=== PATIENT | female | born 2000 | race Caucasian/White ===

== ENCOUNTER 2021-06-16 08:38 | Emergency (ER) | payer OTHER, SELFPAY ==
[2021-06-16] VITALS (14 sets, daily range): BP systolic 110–127; BP diastolic 59–77; PULSE 93; RESP 16; O2SAT 99–100
--- NOTE | ~2021-06-16 | US_ITS ---
EXAMINATION: US pelvic complete DATE: 06/16/2021 12:53 INDICATION: Right lower quadrant abdominal pain. TECHNIQUE: Multiple transabdominal sonographic images of the pelvis were obtained. COMPARISON: CT abdomen and pelvis 06/16/2021 FINDINGS: The uterus measures 7.3 x 3.3 x 6.2 cm. There is no free fluid in the pelvis. The endometrial complex measures 4 mm in thickness. The right ovary measures 3.0 x 1.6 x 1.4 cm. The left ovary measures 3.3 x 1.5 x 1.3 cm. There is normal vascular flow in the ovaries. IMPRESSION: 1. Normal pelvis. Reviewed, dictated and finalized at location A. IMPRESSION: 1. Normal pelvis.
--- NOTE | ~2021-06-16 | CT_ITS ---
EXAMINATION: CT abdomen pelvis w con DATE: 06/16/2021 11:31 INDICATION: Abdominal pain, nausea, vomiting and diarrhea. TECHNIQUE: Computed tomography (CT) of the abdomen and pelvis was performed with 100 mL Omnipaque-350 intravenous contrast. Automated exposure control and iterative reconstruction technique were employe d. The dose-length product was 775.45 mGy-cm. COMPARISON: None FINDINGS: Lung bases are clear. Visualized inferior heart is normal. Mild focal hepatic steatosis at the ligame ntum teres. Gallbladder, spleen, pancreas, bilateral adrenal glands and kidneys are normal. There are few scattered clonic diverticula without adjacent inflammatory change to suggest diverticular coliti s. No bowel obstruction. Bladder, anteverted uterus and left adnexa are unremarkable. There is subtle haziness to the fat in the right hemipelvis along the otherwise normal-appearing right ovary and melquiades r but not appearing centered around the appendicolith-containing tip of the normal-appearing appendix . No free intraperitoneal gas or fluid. No pathologically enlarged abdominal or pelvic lymphadenopath y. Transitional lumbosacral segment. Right supra-acetabular bone island. IMPRESSION: 1. Nonspecific subtle haziness to the fat in the right lower quadrant along side the otherwise unrema rkable right ovary and near but not appearing centered around the tip of the appendicolith-containing appendix. Differential includes tip appendicitis although suspicion is low, ovarian torsion although there does appear to be contrast enhancement of the right ovary and gonadal vessels or other nonspec ific infectious/infiltrate etiology including pelvic inflammatory disease or mesenteritis. Correlate for right lower quadrant/right adnexal pain/tenderness. Reviewed, dictated and finalized at location B. IMPRESSION: 1. Nonspecific subtle haziness to the fat in the right lower quadrant along britta e the otherwise unremarkable right ovary and near but not appearing centered ar ound the tip of the appendicolith-containing appendix. Differential includes ti p appendicitis although suspicion is low, ovarian torsion although there does a ppear to be contrast enhancement of the right ovary and gonadal vessels or othe r nonspecific infectious/infiltrate etiology including pelvic inflammatory dise ase or mesenteritis. Correlate for right lower quadrant/right adnexal pain/tend erness.
--- NOTE | 2021-06-16 09:08 | PC.NURSE ---
Patient ambulatory to with great gait. Urine sample obtained.
--- NOTE | 2021-06-16 09:23 | ED.ABDPAIN ---
HPI - Abdominal Pain General Chief Complaint: Abdominal Pain <MARTIN Chi Last Filed: 06/16/21 18:53> Stated Complaint: nausea and vomiting <MARTIN Chi Last Filed: 06/16/21 18:53> Time Seen by Provider: 06/16/21 08:53 <MARTIN Chi Last Filed: 06/16/21 18:53> Source: patient <MARTIN Chi Last Filed: 06/16/21 18:53> Mode of arrival: ambulatory <MARTIN Chi Last Filed: 06/16/21 18:53> Limitations: no limitations <MARTIN Chi Last Filed: 06/16/21 18:53> History of Present Illness HPI narrative: Patient is a 21-year-old female who presents the ED with reports of nausea, vomiting, diarrhea. Patient reports having daily nausea since last September. She has seen several doctors for this but is not on any prescription nausea medicine at home. She reports having vomiting and diarrhea over the past couple days. She states she is unable to keep any food or fluid down. She notes she has only had one episode of vomiting a day, but this morning had a very forceful episode. She reported having small streaks of blood in her vomit after retching several times today. No episodes of vomiting pure blood. Denies any blood in her stool. Denies any family members with similar symptoms. She also reports having upper abdominal pain but denies any fever, chills, urinary symptoms, back pain, chest pain, shortness of breath. Patient is currently on her menstrual cycle. <MARTIN Chi Last Filed: 06/16/21 18:53> Related Data Allergies/Adverse Reactions: Allergies Allergy/AdvReac Type Severity Reaction Status Date / Time No Known Allergies Allergy Unverified 01/16/18 19:43 <MARTIN Chi Last Filed: 06/16/21 18:53> Review of Systems Review of Systems: CONSTITUTIONAL: Denies fever, chills, or sweats. CARDIOVASCULAR: Denies chest pain. RESPIRATORY: Denies dyspnea. GASTROINTESTINAL: Reports upper abdominal pain, nausea, vomiting w/ streaks of blood, and diarrhea. Denies rectal bleeding. GENITOURINARY: Denies dysuria or hematuria. MUSCULOSKELETAL: Denies back pain. NEUROLOGIC: Denies headache, numbness, or weakness. <Sarah Ledbetter PA-C - Last Filed: 06/16/21 18:53> All systems reviewed & are unremarkable except as noted in HPI and below <Sarah Ledbetter PA-C - Last Filed: 06/16/21 18:53> PMFSH Past Medical History Medical History: Medical History IBS (irritable bowel syndrome) PCOS (polycystic ovarian syndrome) <Sarah Ledbetter PA-C - Last Filed: 06/16/21 18:53> Surgical History Surgical History: Surgical History No pertinent past surgical history <Sarah Ledbetter PA-C - Last Filed: 06/16/21 18:53> Family History Family History: Family History Other No pertinent family history <Sarah Ledbetter PA-C - Last Filed: 06/16/21 18:53> Social History Social History: Social History Smoking status: Never smoker Alcohol intake: current Alcohol use details: Occasional/social alcohol use Substance use: current Substance use type: marijuana Other substance usage details: Smokes marijuana daily Living arrangements: with family Additional living arrangements comments: Lives with her parents Occupation/Education: unemployed Additional occupation/education comments: Not currently employed or in school Gender identity (if verbalized by the patient): Female <Sarah Ledbetter PA-C - Last Filed: 06/16/21 18:53> Exam Narrative: GENERAL: Well appearing, well-nourished, non-toxic, in no acute distress. HEAD: Normocephalic, atraumatic. NECK: Supple. No adenopathy, no masses. RESPIRATORY: Airway patent, respirations nonlabored. Clear to auscultation bilaterally,
[2021-06-16] MEDS: ONDANSETRON INJ 4 MG/2 ML VIAL IV PUSH ×2 (09:42→16:17)
[2021-06-16] MEDS: SODIUM CHLORIDE 0.9% IV 1,000 ML 999 ML IV CONT (09:42)
[2021-06-16 09:57] LABS: Basophils Percent Auto 0.1 % (0.2-1.2); Eosinophils Percent Auto 0.2 % (0-4.4); Hematocrit 40.2 % (37.0-47.0); Immature Granulocyte Absolute 0.02 K/mm3 (0.00-0.031); Immature Granulocyte Percent A 0.2 % (0-0.5); Lymphocytes Absolute Auto 1.95 K/mm3 (0.9-3.2); Lymphocytes Percent Auto 22.9 % (18.3-44.2); Mean Corpuscular HGB Conc 32.3 g/dl (32-36); Mean Corpuscular Hemoglobin 26.9 pg (26-34); Mean Corpuscular Volume 83.2 fl (80-100); Mean Platelet Volume 10.1 fl (7.4-10.4); Monocytes Absolute Auto 0.5 K/mm3 (0.1-0.6); Monocytes Percent Auto 5.4 % (2.6-8.5); Neutrophils Absolute Auto 6.1 K/mm3 (1.3-6.7); Neutrophils Percent Auto 71.2 % (45.5-73.1); Platelet Count Result 366 k/mm3 (150-375); Red Blood Count 4.83 M/mm3 (4.2-5.4); Red Cell Distribution Width 13.2 % (11.5-14.5); White Blood Count 8.5 K/mm3 (4.5-10.0)
[2021-06-16 10:01] LABS: Alanine Aminotransferase 13 U/L (4-35); Albumin Level 4.6 g/dL (3.5-5.1); Alkaline Phosphatase 86 U/L (38-126); Anion Gap 10 mmol/L (8-16); Aspartate Amino Transferase 25 U/L (14-36); Bilirubin,Total 0.3 mg/dL (0.2-1.3); Blood Urea Nitrogen 13 mg/dL (7-17); Calcium 8.9 mg/dL (8.4-10.2); Carbon Dioxide 25 mmol/L (22-30); Chloride 105 mmol/L (98-107); Estimated CRCL calculation 75 ml/min; Estimated Glomerular Filt Rate > 60; Glucose 124 mg/dL (65-110); Lipase 84 U/L (23-300); Potassium 3.3 mmol/L (3.4-5.0); Sodium 140 mmol/L (137-145)
--- NOTE | 2021-06-16 10:46 | PC.NURSE ---
IVF complete. Patient now reports that she can provide urine sample. Ambulatory to BR>
[2021-06-16 11:15] LABS: Add Urine Microscopic? YES; Appearance Urine Cloudy (Clear); Bilirubin Urine Negative (Negative); Blood Urine 3+ (Negative); Color Urine Yellow (Yellow); Glucose Urine UA Negative (Negative); Ketones Urine 1+ mg/dL (Negative); Leukocyte Esterase Ur Negative LEU/UL (Negative); Mucus Urine Rare /lpf; Nitrate Urine Negative (Negative); Protein Urine Negative (Negative); RBC Urine >75 /hpf (0-2); Specific Grav Ur 1.018 (1.001-1.035); Squamous Epithelial Cell Urine Few /hpf (Few); Urobilinogen Urine Negative mg/dL (<2.0)
--- NOTE | 2021-06-16 11:30 | PC.NURSE ---
Patient off unit to radiology for CT>
--- NOTE | 2021-06-16 15:48 | PM.CNGS ---
Assessment and Plan Assessment and plan (1) Epigastric abdominal pain: Code(s): R10.13 - Epigastric pain Status: Acute Assessment and Plan: The patient presents acutely with vomiting and diarrhea. She also deals with nausea and epigastric abdominal pain chronically. CT suggests nonspecific subtle haziness to the fat in the right lower quadrant. There is evidence of an appendicolith at the tip of the appendix, but an otherwise normal appearing appendix. Pelvic US was ordered to rule out ovarian torsion, which appeared normal. Imaging was reviewed and discussed with the patient in detail. She is diffusely tender on exam and is not currently having any abdominal pain. Clinically, her presentation and exam do not correlate with acute appendicitis. We feel this is less likely to be the cause of her symptoms, and the findings on the CT are more likely caused by another infectious source. Okay from our standpoint to send the patient home and treat her conservatively as a viral gastroenteritis. I discussed with the patient that although acute appendicitis is unlikely, this is still a slight possibility. Therefore, if she does not improve in the next 24 hours, we would recommend she return to the ER for re-evaluation. If her symptoms continue to improve, then we would recommended that she follow-up with GI as an outpatient for further work-up of the chronic nausea and epigastric pain. Discussed the treatment plan with the patient and she agrees. Thank you for allowing us to see the patient in consultation. (2) Abnormal CT of the abdomen: Code(s): R93.5 - Abnormal findings on diagnostic imaging of other abdominal regions, including retroperitoneum Status: Acute Assessment and Plan: CT showing nonspecific subtle haziness to the fat in the right lower quadrant along side the otherwise unremarkable right ovary and near but not appearing centered around the tip of the appendicolith-containing appendix. See plan above. (3) Nausea & vomiting: Code(s): R11.2 - Nausea with vomiting, unspecified Status: Acute Assessment and Plan: See plan above. Would recommend following up with GI as an outpatient for ongoing chronic nausea and epigastric abdominal pain. (4) PCOS (polycystic ovarian syndrome): Code(s): E28.2 - Polycystic ovarian syndrome Status: Acute Additional Plan I have discussed the patient's case and plan of care with Dr. Damian. History of Present Illness Consult details Consult date: 06/16/21 Reason for consult: abdominal pain Requesting physician: Sarah Ledbetter PA-C Narrative: This is a 21-year-old female with a history of IBS and PCOS, who presented to the ER with complaints of nausea, vomiting, and diarrhea. She reports that she has had chronic issues with epigastric abdominal pain and nausea for over 10 years. She was reportedly diagnosed with IBS at the age of 11 and has been evaluated by a Tire Changer at [facility]. She denies ever having an upper endoscopy in the past. She reports that for years she deals with epigastric abdominal pain and nausea on a daily basis, but does not typically vomit. She smokes marijuana daily to try and improve her appetite. She reports that a few days ago she began having diarrhea, with over 10 watery stools per day. She reports that yesterday she began vomiting. No fever or chills. No close contacts with similar symptoms. This morning, she had an episode of vomiting after taking Protonix, Pepcid, Midol, and chugging a large amount of water with her pills. She reported having blood-tinged emesis, which prompted her to go to the ER. She also reports having some bilateral lower abdominal cramping that is intermittent and corresponds with her menstrual cycle. She reports that the cramps she has experienced over the past few days with her period is what she typically experiences during menses with her PCOS. Work-up in the ER shows a normal WBC count. CT scan of
--- NOTE | 2021-06-16 16:17 | PC.NURSE ---
EDP back at bedside to update patient on plan of care.
== END 2021-06-16 16:42 | disposition home or self-care (01) ==
PROVIDERS: Physician Assistant; Emergency Provider Emergency Medicine; PCP Nurse Practitioner Family
DX: K52.9 Noninfective gastroenteritis and colitis, unspecified (principal); R93.5 Abnormal findings on diagnostic imaging of other abdominal regions, including retroperitoneum; E28.2 Polycystic ovarian syndrome; F12.90 Cannabis use, unspecified, uncomplicated
CPT/HCPCS: 36415; 74177; 76856; 80053; 81001; 81025; 83690; 85025; 96365; 96375; 96376; 99284; J0131; J2405; J7030; Q9967

== ENCOUNTER 2021-08-27 16:00 | Outpatient (CLI) | payer OTHER, SELFPAY ==
[2021-09-26 15:09] LABS: Gliadin AB, IgG <1.0 U/mL (<15.0); Reticulin IgA Negative (Negative); TTG IGA AB <1.0 U/mL (<15.0)
== END 2021-08-27 16:01 | disposition home or self-care (01) ==
LOC: ANHLAB 16:01
PROVIDERS: PCP Nurse Practitioner Family; Visit Provider Internal Medicine Gastroenterology
DX: R10.13 Epigastric pain (principal)
CPT/HCPCS: 36415; 83516; 86255

== ENCOUNTER 2024-11-10 23:49 | Emergency (ER) | payer OTHER, SELFPAY ==
--- NOTE | ~2024-11-10 | XR_ITS ---
EXAMINATION: XR chest 1V, 11/11/2024 0:25 CDT HISTORY: neuro symptoms COMPARISON: No comparisons available. Technique: Single view. Findings: The lungs are clear, no effusion. No pneumothorax. Heart is normal size. Mediastinal and hilar contours are within normal limits. Bony thorax no acute abnormality. Impression: No acute cardiopulmonary abnormality. Reviewed, dictated and finalized at location A. Impression: No acute cardiopulmonary abnormality.
--- NOTE | ~2024-11-10 | CT_ITS ---
EXAMINATION: CT brain wo con COMPARISON: None HISTORY: neuro symptoms TECHNIQUE: Axial images were obtained through the brain without IV contrast. CT scan performed using dose optimization techniques including the following automated exposure control; adjustment of mA and/or kV; use of iterative reconstruction technique. Automatic exposure control was used to reduce radiation dose. Permanent radiation dose record is archived to PACS. FINDINGS: No acute infarct or parenchymal hemorrhage. No abnormal mass or mass effect. No midline shift. No extra-axial fluid collections. No hydrocephalus. . Mastoid air cells unremarkable. Sinuses and orbits unremarkable. No acute fracture. No significant facial or scalp soft tissue swelling evident. No radiopaque foreign body is seen. Impression: 1.No acute intracranial abnormality. Reviewed, dictated and finalized at location A. Impression: 1.No acute intracranial abnormality.
[2024-11-10 23:55] VITALS: BP 115/72; PULSE 86; RESP 16; TEMP 37.1; O2SAT 100
--- OUTSIDE RECORDS SUMMARY | 2024-11-10 23:55 | XMS_ITS | Clinical Summary ---
Author Organization [facility] Address [address] [place] [address] Care Team Providers Care Documentation Lead Name Role Phone Tara Rueda MD Primary Care Provider [phone] Source Comments [facility],non-owned Affiliates and Associated Physician Practices is amultiple site organization consisting of ambulatory clinics and hospital sitesin [place], [place], [place] and [place]. This disclosure is being madepursuant to the Care Everywhere program and may not contain all information available regarding this patient. Last updated 17.[facility] Allergies No known active allergies Medications * Be aware that medications may not be up to date on this document. Alwaysverify current medications with the patient. 04/03 1-20 MG-MCG tablet 7 Active SM CLEARLAX powder 7 Active hyoscyamine (LEVSIN/SL) 0.125 MG SL tablet Dissolve 1 Tab under the tongue 2 times daily as needed for Spasms 60 Tab 1 7 Active omeprazole (PRILOSEC) 20 MG capsule Take 1 capsule by mouth daily before breakfast 30 capsule 2 7 Active Active Problems Problem Noted Date Diagnosed Date Blood in stool 12/18/2016 Generalized abdominal pain 12/15/2016 Obesity, Class I, BMI 30-34.9 12/15/2016 Gastroesophageal reflux disease 12/15/2016 Abdominal pain 12/14/2016 Overweight 12/14/2016 Resolved Problems Problem Noted Date Diagnosed Date Resolved Date Constipation 12/15/2016 01/12/2017 Family History Medical History Relation Name Comments Other Mother GERD. Had stoma ch ulcers as a child. Crohn's Disease Paternal Grandmother Celiac Disease Paternal Uncle Other Sister GERD Ulcerative Colitis Neg Hx Relation Name Status Comments Mother Paternal Grandmother Paternal Uncle Sister Social History Tobacco Use Types Packs/Day Years Used Date Smoking Tobacco: Never Smokeless Tobacco: Never Alcohol Use Standard Drinks/Week Comments No 0 (1 standard drink = 0.6 oz pur e alcohol) Comments Unknown Sex and Gender Information Value Date Recorded Sex Assigned at Not on file Legal Sex Female 5:40 AM MUSIC EXECUTIVE Gender Identity Not on file Sexual Orientation Not on file Last Filed Vital Signs Vital Sign Reading Time Taken Comments Blood Pressure 106/62 12/15/2016 3:00 PM CDT Pulse - - Temperature - - Respiratory Rate - - Oxygen Saturation - - Inhaled Oxygen Concentration - - Weight 84.1 kg (185 lb 6.5 oz) 12/15/2016 3:00 P M CDT Height 158.1 cm (5' 2.24) 12/15/2016 3:00 PM CD T Body Mass Index 33.65 12/15/2016 3:00 PM CDT Plan of Treatment Health Maintenance Due Date Last Done Comments HIV SCREENING 2016 HPV VACCINE (1 - 3-dose series) 2016 CHLAMYDIA/GONORRHEA SCREENING 2017 MENINGOCOCCAL (Group B) VACC INE SHARED DECISION-MAKING (1 of 2 - Standard) 2017 HEPATITIS C SCREENING 03/20/2019 DTAP/TDAP/TD VACCINES (1 - Tdap) 2020 HEPATITIS B VACCINE (1 of 3 - 19+ 3-dose series) 2020 COVID-19 VACCINE (1 - 2023-2 5 season) 2023 DEPRESSION SCREENING 03/15/2024 INFLUENZA VACCINE (#1) 2024 ZOSTER VACCINE (1 of 2) 2051 HIB VACCINE Aged Out No longer eligi ble based on patient's age to complete this topic MENINGOCOCCAL GROUPS A/C/Y/W VACCINE Aged Out No longer eligible b ased on patient's age to complete this topic PNEUMOCOCCAL VACCINE Aged Out No long er eligible based on patient's age to complete this topic Insurance [facility] Care Teams Documentation Lead Relationship Specialty Start Date End Date Tara Rueda MD [address] [place] [address] PCP - General 11/08/17
--- OUTSIDE RECORDS SUMMARY | 2024-11-10 23:55 | XMS_ITS | Clinical Summary ---
Author Organization [facility] Address [facility] [place] [address] Care Team Providers Care Visual Arts Teacher Name Role Phone Nasima Pippa Rutledge MATERIALS BUYER Primary Care Provider [phone] Allergies No known active allergies Medications levETIRAcetam ER 750 MG TABLET SR 24 HR 24 hr tablet Take 750 mg by mouth daily. Active escitalopram 5 MG tablet Take 5 mg by mouth daily. Active famotidine 10 MG tablet Take 10 mg by mouth 2 (two) times daily. Active omeprazole 40 MG capsule Take 1 capsule (40 mg total) by mouth daily. 30 capsule 2 Active ondansetron 4 MG disintegrating tablet Take 1 tablet (4 mg total) by mouth every 8 (eight) hours as needed for Nausea. 12 tablet 2 Active famotidine 20 MG tablet Take 1 tablet (20 mg total) by mouth 2 (two) times daily. 60 tablet 2 Active ondansetron (ZOFRAN-ODT) 4 MG disintegrating tablet Take 1 tablet (4 mg total) by mouth every 8 (eight) hours as needed for Nausea. 20 tablet 2 Active dicyclomine (BENTYL) 10 MG capsule Take 1 capsule (10 mg total) by mouth 4 (four) times daily before meals and nightly. 240 capsule 2 Active Social History Tobacco Use Types Packs/Day Years Used Date Smoking Tobacco: Never Smokeless Tobacco: Never Alcohol Use Standard Drinks/Week Comments Yes 0 (1 standard drink = 0.6 oz pur e alcohol) Comments Unknown Sex and Gender Information Value Date Recorded Sex Assigned at Not on file Legal Sex Female 6:34 AM CDT Gender Identity Not on file Sexual Orientation Not on file Last Filed Vital Signs Vital Sign Reading Time Taken Comments Blood Pressure 100/52 01/29/2022 11:00 PM CONSOLE ASSEMBLER Pulse 91 01/29/2022 7:41 PM CONSOLE ASSEMBLER Temperature 36.3 C (97.3 F) 01/29/2022 7:41 PM CONSOLE ASSEMBLER Respiratory Rate 18 01/29/2022 7:41 PM CONSOLE ASSEMBLER Oxygen Saturation 97% 01/29/2022 11:00 PM CONSOLE ASSEMBLER Inhaled Oxygen Concentration - - Weight 93 kg (205 lb) 01/29/2022 7:41 PM CONSOLE ASSEMBLER Height 160 cm (5' 3) 01/29/2022 7:41 PM CONSOLE ASSEMBLER Body Mass Index 36.31 01/29/2022 7:41 PM CONSOLE ASSEMBLER Plan of Treatment Health Maintenance Due Date Last Done Comments Cervical Cancer Screening Pap Smear (Age 21 to 29) Every 3 Years 2001 Cervical Cancer Screening 2001 Annual Physical 2004 Hepatitis C 2019 DTaP, Tdap and Td Vaccines (7 - Td or Tdap) 11/21/2022 11/21/2012, 11/29/2006, 07/20/2002, Additional history exists COVID-19 Vaccine ( season) 2023 Hepatitis B Vaccines Completed 04/18/2002, 2001, 2001 Pneumococcal Vaccine: Pediatrics (0 to 5 Years) and At-Risk Patients (6 to 49 Years) Aged Out 04/18/2002, 2001, 2001, Additional history exists No longer eligible based on patient's age to complete this topic HPV Vaccines Completed 12/02/2015, 06/0 05/2013, 02/01/2013, Additional history exists Meningococcal Vaccine Completed 12/14/2018, 013 Meningococcal B Vaccine Completed 04/12/2019, 12/14 RSV Immunizations Under 20 Months Aged Out No longer eligible based on patient's age to complete this topic Insurance [employer] Care Teams Visual Arts Teacher Relationship Specialty Start Date End Date Pippa Del Real NP [address] [place] [address] PCP - General NURSE PRACTITIONER 04/10/21
--- OUTSIDE RECORDS SUMMARY | 2024-11-10 23:55 | XMS_ITS | Clinical Summary ---
Author Organization [facility] Address [address] [place] [address] Phone Care Team Providers Care Tail Board Man Name Role Phone Tara Macdonald MD Primary Care Provider Social History Tobacco Use Types Packs/Day Years Used Date Smoking Tobacco: Never Assessed Comments Unknown Sex and Gender Information Value Date Recorded Sex Assigned at Not on file Legal Sex Female 11:43 AM CDT Gender Identity Not on file Sexual Orientation Not on file Plan of Treatment Health Maintenance Due Date Last Done Comments Hepatitis C Virus (HCV) Screening 2001 Meningococcal B Immunization (1 of 2 - Standard) 2017 SARS-COV-2 Immunization ( - season) 2023 Influenza Immunization (#1) 2024 Respiratory Syncytial Virus (RSV) Immunization (Adult) (1 - 1-dose 75+ series) 2076 Hepatitis B Immunization Completed 003, 2001, 2001 Pneumococcal Immunization Combined Aged Out 04/18/2002, 2001, 2001, Additional history exists No longer eligible based on patient's age to complete this topic Measles Mumps Rubella (MMR) Immunization Discontinued 11/29/2006, 04/18/2002 Polio (IPV) Immunization Discontinued 007, 2001, 2001, Additional history exists DTaP/Tdap/Td Immunization Discontinued 2012, 11/29/2006, 07/20/2002, Additional history exists Meningococcal Immunization (ACWY) Aged Out 11/21/2012 No longer eligible based on patient's age to complete this topic TdaP Immunization Completed 11/21/2012 Hepatitis A Immunization Discontinued 08/15/2013, 11/2012 Varicella Immunization Discontinued 08/15/2013, 2002 Human Papillomavirus (HPV) Immunization Completed 12/02/2015, 08/15/2013, 02/01/2013, Additional history exists Rotavirus Immunization Aged Out No lo nger eligible based on patient's age to complete this topic Insurance MEDICAID [employer] Care Teams Tail Board Man Relationship Specialty Start Date End Date Jedg Tara Squires MD [address] [place] [address] [address] [place] [address] PCP - General Family Medicine 06/13/18
--- NOTE | 2024-11-11 00:04 | PC.NURSE ---
ct aware of pt.
--- NOTE | 2024-11-11 00:08 | ECG_ITS ---
Test Date: 2024-11-11 00:08:01 Measurements Intervals [place] Rate: 84 P: 52 NM: 151 QRS: 69 QRSD: 98 T: 44 QT: 382 QTc: 453 Interpretive Statements SINUS RHYTHM MINIMAL Q WAVES- INFERIOR LEADS BASELINE ARTIFACT- I, II, III, AVR, AVL, V4-V6 BORDERLINE ECG No previous ECG available for comparison Electronically Signed On 11-11-2024 08:11:36 CDT by Roque Pina D.O.
[2024-11-11 00:22] LABS: Hematocrit 36.3 % (37.0-47.0); Hemoglobin 11.2 g/dL (12.0-15.0); Immature Granulocyte Percent A 0.2 % (0-0.5); Lymphocytes Absolute Auto 2.77 K/mm3 (0.9-3.2); Mean Corpuscular HGB Conc 30.9 g/dl (32-36); Mean Corpuscular Hemoglobin 24.3 pg (26-34); Mean Corpuscular Volume 78.9 fl (80-100); Nucleated Red Blood Cells Absolute Auto 0.000 K/mm3 (0.0-0.012); Nucleated Red Blood Cells Perc 0.0 % (0.0-0.2); Platelet Count Result 357 k/mm3 (150-375); Red Blood Count 4.60 M/mm3 (4.2-5.4); White Blood Count 9.6 K/mm3 (4.5-10.0)
[2024-11-11 00:31] LABS: Alanine Aminotransferase 17 U/L (6-35); Albumin Level 4.2 g/dL (3.5-5.1); Alkaline Phosphatase 81 U/L (38-126); Anion Gap 10 mmol/L (4-12); Aspartate Amino Transferase 24 U/L (14-36); Bilirubin,Total 0.3 mg/dL (0.2-1.3); Blood Urea Nitrogen 12 mg/dL (7-17); Calcium 8.9 mg/dL (8.4-10.2); Carbon Dioxide 25 mmol/L (22-30); Chloride 103 mmol/L (98-107); Estimated CRCL calculation 84 ml/min; Estimated Glomerular Filt Rate > 60; Glucose 115 mg/dL (65-110); Potassium 3.3 mmol/L (3.4-5.0); Sodium 138 mmol/L (137-145); Total Protein 7.9 g/dL (6.3-8.2)
[2024-11-11 00:34] LABS: INR 1.0; Prothrombin Time 13.2 Seconds (11.1-14.7)
[2024-11-11 00:35] LABS: Partial Thromboplastin Time 32.4 Seconds (22.3-36.8)
[2024-11-11 00:43] LABS: Troponin I < 0.012 ng/mL (0.000-0.034)
[2024-11-11 01:31] VITALS: BP 114/72; PULSE 89; RESP 18; O2SAT 98
[2024-11-11 01:33] VITALS: BP 114/72; PULSE 88; RESP 18; O2SAT 100
--- OUTSIDE RECORDS SUMMARY | 2024-11-11 01:38 | XMS_ITS | Clinical Summary ---
Author Organization [facility] Address [facility] [place] [address] Care Team Providers Care Hall Director Name Role Phone Nasima Pippa Rutledge MANAGEMENT PLANNER Primary Care Provider [phone] Allergies No known active allergies Medications levETIRAcetam [...] Comments Blood Pressure 100/52 01/29/2022 11:00 PM WATCH ADJUSTER Pulse 91 01/29/2022 7:41 PM WATCH ADJUSTER Temperature 36.3 C (97.3 F) 01/29/2022 7:41 PM WATCH ADJUSTER Respiratory Rate 18 01/29/2022 7:41 PM WATCH ADJUSTER Oxygen Saturation 97% 01/29/2022 11:00 PM WATCH ADJUSTER Inhaled Oxygen Concentration - - Weight 93 kg (205 lb) 01/29/2022 7:41 PM WATCH ADJUSTER Height 160 cm (5' 3) 01/29/2022 7:41 PM WATCH ADJUSTER Body Mass Index 36.31 01/29/2022 7:41 PM WATCH ADJUSTER Plan of Treatment Health Maintenance Due Date [...] complete this topic Insurance [employer] Care Teams Hall Director Relationship Specialty Start Date End Date Pippa Del Real NP [address] [place] [address] PCP - General NURSE PRACTITIONER 04/10/21
--- OUTSIDE RECORDS SUMMARY | 2024-11-11 01:38 | XMS_ITS | Clinical Summary ---
Author Organization [facility] Address [address] [place] [address] Phone Care Team Providers Care Gear And Spline Grinder Name Role Phone Tara Macdonald MD Primary [...] 2 - Standard) 2017 SARS-COV-2 Immunization ( season) 2023 Influenza Immunization (#1) 2024 Respiratory [...] Insurance MEDICAID [employer] Care Teams Gear And Spline Grinder Relationship Specialty Start Date End Date Jedg Tara Squires MD [address] [place] [address] [address] [place] [address] PCP - General Family Medicine 06/13/18
--- OUTSIDE RECORDS SUMMARY | 2024-11-11 01:38 | XMS_ITS | Clinical Summary ---
Author Organization [facility] Address [address] 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 This disclosure is being madepursuant to the Care Everywhere program and may not contain all information available regarding this patient. Last updated 17.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
--- NOTE | 2024-11-11 02:02 | ED_ITS ---
HPI - General Adult General Chief complaint: Neuro Symptoms/Deficit Stated complaint: stroke symptoms (looking at phone image to read) Time Seen by Provider: 11/11/24 01:24 History of Present Illness HPI narrative: This is a 24-year-old female presenting with concerns about a stroke. Patient noticed that she had a patch numbness over her left anterior thigh 4 days ago. She then had a patch of numbness over her left anterior mccann. She then had an episode of dizziness and lightheadedness work. She works at [employer] and stands the entire day. 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 She does not have any slurred speech, weakness to any extremity, vision changes or headaches. She has been going symptoms of stroke on the Internet and had become very worried. Patient has been having many strange feelings lately including different aches and pains. She asked her primary care physician to be evaluated for fibromyalgia and was told that was a diagnosis of exclusion. She is undergoing a battery of tests to figure out why she has these different aches. Related Data Home Medications ?Medication ?Instructions ?Recorded ?Confirmed ?Last Taken ?Type escitalopram oxalate 5 mg tablet 5 mg PO DAILY 2 Unknown History (Lexapro) levetiracetam 750 mg tablet 750 mg PO BID 08/27/21 Un known History atomoxetine 80 mg capsule mg PO 11/11/24 Unknown Hist ory bupropion HCl 75 mg tablet mg PO 11/11/24 Unknown His tory buspirone 30 mg tablet mg 11/11/24 Unknown History famotidine 40 mg tablet mg 11/11/24 Unknown History hyoscyamine sulfate 0.125 mg tablet mg 11/11/24 Unkno wn History lumateperone 42 mg capsule mg PO 11/11/24 Unknown His tory (Caplyta) norelgestromin 150 mcg-e.estradiol patch 11/11/24 Unk nown History 35 mcg/24 hr weekly transderm patch (Zafemy) omeprazole 40 mg capsule,delayed mg 11/11/24 Unknown History release ondansetron HCl 8 mg tablet mg 11/11/24 Unknown Histo ry propranolol 10 mg tablet mg 11/11/24 Unknown History Allergies Allergy/AdvReac Type Severity Reaction Status Date / Time No Known Allergies Allergy Verified 11/11/24 00:01 [facility] Past Medical History Medical History IBS (irritable bowel syndrome) PCOS (polycystic ovarian syndrome) Surgical History Surgical History No pertinent past surgical history Family History Family History Other No pertinent family history Social History Social History Smoking status: Never smoker Alcohol intake: current Alcohol use details: Occasional/social alcohol use Substance use: current Substance use type: marijuana Other substance usage details: Smokes marijuana daily Living arrangements: with family Additional living arrangements comments: Lives with her parents Occupation/Education: unemployed Additional occupation/education comments: Not currently employed or in school Gender identity (if verbalized by the patient): Female Exam 2 Narrative: APPEARANCE: No apparent distress. Head: atraumatic. EYES: EOMI, NOSE: Atraumatic NECK: Trachea midline RESPIRATORY: No increased rate of breathing clear to auscultation CARDIOVASCULAR: RRR, +2 pulses in extremities ABDOMINAL: Non-distended no peripheral edema MUSCULOSKELETAl: No obvious deformities NEURO: Alert. Cranial nerves 2-12 grossly intact. Motor function cerebellar function intact for 4 extremities. Sensation is intact except for a small circular area over her left anterior thigh which has subjective decreased sensation. SKIN:: Warm, dry. Normal color PSYCHIATRIC: Normal affect Course Vital Signs Vital signs: Vital Signs Temperature 98.7 F 11/10/24 23:55 Pulse Rate 86 11/10/24 23:55 Respiratory Rate 16 11/10/24 23:55 Blood Pressure 115/72 11/10/24 23:55 Pulse Oximetry 100 11/10/24 23:55 Oxygen Delivery Room Air 11/10/24 23:55 Temperature 98.7 F 11/10/24 23:55 Pulse Rate 88 11/11/24 01:33 Respiratory Rate 18 11/11/24 01:33 Blood Pressure 114/72 11/11/24 01:33 Pulse Oximetry 100 11/11/24 01:33 Oxygen Delivery Room Air 11/10/24 23:55 Medical Decision Making MDM Narrative Medical decision making narrative: -Course: 24-year-old female concerns about stroke due to paresthesias of her left anterior thigh. 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 Her symptoms are not concerning for stroke. Laboratory studies and CT ordered per nursing protocol which were unremarkable. Patient was reassured. She is comfortable following up with her primary care physician. Given return precautions -DDX includes but is not limited to: Peripheral neuropathy, fibromyalgia, functional neurologic deficit, CVA Vital Signs Vital Signs: Vital Signs Temperature 98.7 F 11/10/24 23:55 Pulse Rate 86 11/10/24 23:55 Respiratory Rate 16 11/10/24 23:55 Blood Pressure 115/72 11/10/24 23:55 Pulse Oximetry 100 11/10/24 23:55 Oxygen Delivery Room Air 11/10/24 23:55 Temperature 98.7 F 11/10/24 23:55 Pulse Rate 88 11/11/24 01:33 Respiratory Rate 18 11/11/24 01:33 Blood Pressure 114/72 11/11/24 01:33 Pulse Oximetry 100 11/11/24 01:33 Oxygen Delivery Room Air 11/10/24 23:55 Lab Data 11/11/24 00:10 11/11/24 00:10 Labs: Lab Results 11/11/24 Range/Units 00:10 WBC 9.6 (4.5-10.0) K/mm3 RBC 4.60 (4.2-5.4) M/mm3 Hgb 11.2 L (12.0-15.0) g/dL Hct 36.3 L (37.0-47.0) % MCV 78.9 L (80-100) fl MCH 24.3 L (26-34) pg MCHC 30.9 L (32-36) g/dl RDW 14.3 (11.5-14.5) % Plt Count 357 (150-375) k/mm3 MPV 9.9 (7.4-10.4) fl Immature Gran % (Auto) 0.2 (0-0.5) % Neut % (Auto) 64.3 (45.5-73.1) % Lymph % (Auto) 28.8 (18.3-44.2) % Cavalier % (Auto) 5.9 (2.6-8.5) % Eos % (Auto) 0.6 (0-4.4) % Baso % (Auto) 0.2 (0.2-1.2) % Lymph # (Auto) 2.77 (0.9-3.2) K/mm3 Cavalier # (Auto) 0.6 (0.1-0.6) K/mm3 Eos # (Auto) 0.1 (0-0.3) K/mm3 Baso # (Auto) 0.0 (0.0-0.1) K/mm3 Abs Immat Gran (auto) 0.02 (0.00-0.031) K/mm3 Absolute Neuts (auto) 6.2 (1.3-6.7) K/mm3 Absolute Nucleated RBC 0.000 (0.0-0.012) K/mm3 Nucleated RBC % 0.0 (0.0-0.2) % PT 13.2 (11.1-14.7) Seconds INR 1.0 APTT 32.4 (22.3-36.8) Seconds Sodium 138 (137-145) mmol/L Potassium 3.3 L (3.4-5.0) mmol/L Chloride 103 (98-107) mmol/L Carbon Dioxide 25 (22-30) mmol/L Anion Gap 10 (4-12) mmol/L BUN 12 (7-17) mg/dL Creatinine 0.95 (0.7-1.0) mg/dL Estim Creat Clear Calc 84 ml/min Estimated GFR > 60 (59 - ) Glucose 115 H (65-110) mg/dL Calcium 8.9 (8.4-10.2) mg/dL Total Bilirubin 0.3 (0.2-1.3) mg/dL AST 24 (14-36) U/L ALT 17 (6-35) U/L Alkaline Phosphatase 81 (38-126) U/L Troponin I < 0.012 (0.000-0.034) ng/mL Total Protein 7.9 (6.3-8.2) g/dL Albumin 4.2 (3.5-5.1) g/dL Discharge Plan Discharge Clinical Impression: Left leg paresthesias Patient Disposition: Home Condition: Stable Instructions: Antibiotic Form, Paresthesia (ED) Additional Instructions: Please follow-up with your primary care physician for further management. If you develop any symptoms like slurred speech facial droop or arm weakness he can return to the ED re-evaluation. Patient Language: Macanese Prescriptions: No Action escitalopram oxalate [Lexapro] 5 mg tablet 5 mg PO DAILY levetiracetam 750 mg tablet 750 mg PO BID ondansetron 4 mg tablet,disintegrating 4 mg PO Q8H PRN (Reason: nausea and vomiting) Qty: 12 0RF ondansetron HCl 8 mg tablet famotidine 40 mg tablet omeprazole 40 mg capsule,delayed release(DR/EC) propranolol 10 mg tablet hyoscyamine sulfate 0.125 mg tablet buspirone 30 mg tablet bupropion HCl 75 mg tablet PO norelgestromin-ethin.estradiol [Zafemy] 150-35 mcg/24 hr patch weekly atomoxetine 80 mg capsule PO Caplyta 42 mg capsule PO Follow-up/Referrals: Nasima,CAM Das [Primary Care Provider, Unknown]
== END 2024-11-11 02:32 | disposition home or self-care (01) ==
PROVIDERS: Emergency Provider Emergency Medicine; PCP Nurse Practitioner Family
DX: R20.2 Paresthesia of skin (principal); E28.2 Polycystic ovarian syndrome; K58.9 Irritable bowel syndrome, unspecified; R94.31 Abnormal electrocardiogram [ECG] [EKG]
CPT/HCPCS: 36415; 70450; 71045; 80053; 84484; 85025; 85610; 85730; 93005; 99284